=== PATIENT | male | born 1995 | race Caucasian/White ===

== ENCOUNTER 2019-05-18 13:24 | Outpatient (CLI) | payer BC, OTHER ==
--- NOTE | 2019-05-18 14:03 | RAD ---
PA AND LATERAL VIEWS CHEST: HISTORY: Empyema. FINDINGS: There are no previous exams for comparison. There are postop changes of scoliosis surgery and metallic hardware in the spine. The heart size is normal. There is blunting of the right costophrenic angle. No lobar consolidation, pneumothoraces, bobbi pulmonary edema, or large effusions are seen. A small right pleural effusion could not be excl uded on the study. An electronic device is seen in the left chest wall. POS: [facility]
== END 2019-05-18 13:25 | disposition home or self-care (01) ==
LOC: RAD 13:24
PROVIDERS: ATTEND Thoracic Surgery (Cardiothoracic Vascular Surgery)
DX: J86.9 Pyothorax without fistula (principal)
CPT/HCPCS: 71046

== ENCOUNTER 2019-07-11 13:29 | Outpatient (CLI) | payer BC, OTHER ==
--- NOTE | 2019-07-11 13:59 | RAD ---
2 views of the chest: 07/11/2019 COMPARISON: 05/18/2019 HISTORY: Shortness of breath FINDINGS: Extensive spinal postoperative hardware again noted. Slight blunting of the right costophre mich angle noted, stable. Left-sided vagal nerve stimulator present. No pneumothorax or pleural fluid. No focal consolidation or alveolar edema. IMPRESSION: No acute findings.
== END 2019-07-11 13:30 | disposition home or self-care (01) ==
LOC: RAD 13:29
PROVIDERS: ATTEND Internal Medicine Pulmonary Disease
DX: R06.00 Dyspnea, unspecified (principal)
CPT/HCPCS: 71046